=== PATIENT | female | born 1990 | race Caucasian/White ===

== ENCOUNTER 2023-05-31 12:54 | Emergency (ER) | payer OTHER, SELFPAY ==
--- NOTE | ~2023-05-31 | XR_ITS ---
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 RESULT: Lines, tubes, and devices: None. Lungs and pleura: Clear. Cardiothymic silhouette: Stable. Other: No acute upper abdominal finding. Mildly displaced right anterior fifth rib fracture IMPRESSION: Mildly displaced right anterior fifth rib fracture. Reviewed, dictated and finalized at location [facility]. 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
[2023-05-31 12:59] VITALS: BP 143/100; PULSE 104; RESP 18; TEMP 36.6; O2SAT 98
--- NOTE | 2023-05-31 13:36 | ED.GENADULT ---
HPI - General Adult General Chief complaint: Unspecified Stated complaint: right flank pain Time Seen by Provider: 05/31/23 13:03 Source: patient Mode of arrival: ambulatory Limitations: no limitations History of Present Illness HPI narrative: This is a 33 year old female that presents to the ER for mid back pain. Reports ongoing over the last week. Reports the pain like a soreness. Worse with touch and movement. Sharp pain with certain movements. She was evaluated with urinalysis and CT scans in [place] where she is from. Instructed her pain was likely musculoskeletal. Reports she has been taking Ibuprofen with some relief. She coughed today and the pain became way worse which prompted her to be seen again. No recent surgeries. She does report she has had a cold recently with persistent cough since. Denies fever, chest pain, shortness of breath, exogenous estrogen use, dysuria, or hematuria. Related Data Allergies Allergy/AdvReac Type Severity Reaction Status Date / Time No Known Allergies Allergy Verified 05/31/23 13:01 Review of Systems Review of Systems: CONSTITUTIONAL: Denies fever CARDIOVASCULAR: Denies chest pain or edema. RESPIRATORY: Reports cough. Denies dyspnea. SKIN: Denies rash MUSCULOSKELETAL: Reports back pain, joint pain, and myalgia. NEUROLOGIC: Denies numbness, or weakness. All systems reviewed & are unremarkable except as noted in HPI and below PMFSH Surgical History Surgical History (Updated 05/31/23 @ 13:37 by Sue Haji PA-C) History of tonsillectomy Social History Social History (Updated 05/31/23 @ 13:37 by Sue Haji PA-C) Smoking status: Never smoker Exam Narrative: GENERAL: Well-appearing, well-nourished, and in no acute distress. HEAD: Normocephalic, atraumatic. EYES: EOMI. CHEST: Clear to auscultation. No respiratory distress. No wheezes rales or rhonchi. Tender to palpation of right lateral chest wall HEART: Regular rate and rhythm. No murmur heard. Normal peripheral pulses. BACK: No midline spinal tenderness EXTREMITIES: Normal range of motion. No edema. Strength equal in bilateral upper extremities (5/5) SKIN: Warm, dry, no rash. NEURO: No focal deficits. Alert and oriented x3. PSYCH: Normal mood and affect Course Course Emergency Course: Patient updated on workup and agrees with plan of care Vital Signs Vital signs: Vital Signs Temperature 97.8 F 05/31/23 12:59 Pulse Rate 104 H 05/31/23 12:59 Respiratory Rate 18 05/31/23 12:59 Blood Pressure 143/100 H 05/31/23 12:59 Pulse Oximetry 98 05/31/23 12:59 Temperature 97.8 F 05/31/23 12:59 Pulse Rate 104 H 05/31/23 12:59 Respiratory Rate 18 05/31/23 12:59 Blood Pressure 143/100 H 05/31/23 12:59 Pulse Oximetry 98 05/31/23 12:59 Medical Decision Making MDM Narrative Medical decision making narrative: Patient presents to the ER for right sided back/rib pain after coughing today. Reports she has been coughing over the last couple of weeks after having a recent viral infection. Mildly tachycardic upon arrival, this normalized with pain management. She is afebrile and nontoxic-appearing. Lungs are clear on exam. Oxygen saturation is normal on room air. CBC without leukocytosis. Metabolic panel with normal-appearing kidney function. Bedside test is negative. Rib/chest x-ray shows a mildly displaced right anterior fifth rib fracture. Clear lungs. Patient updated on workup and agrees with plan of care. Instructed on further care of rib fracture. Given incentive spirometer. She is to follow-up with her primary provider. She was given warnings to return to the ER Vital Signs Vital Signs: Vital Signs Temperature 97.8 F 05/31/23 12:59 Pulse Rate 104 H 05/31/23 12:59 Respiratory Rate 18 05/31/23 12:59 Blood Pressure 143/100 H 05/31/23 12:59 Pulse Oximetry 98 05/31/23 12:59 Temperature 97.8 F 05/31/23 12:59 Pulse Rate 104 H
[2023-05-31 13:56] LABS: Basophils Percent Auto 0.4 % (0.2-1.2); Eosinophils Absolute Auto 0.2 K/mm3 (0-0.3); Eosinophils Percent Auto 1.5 % (0-4.4); Hematocrit 42.3 % (37.0-47.0); Hemoglobin 13.5 g/dL (12.0-15.0); Immature Granulocyte Absolute 0.04 K/mm3 (0.00-0.031); Immature Granulocyte Percent A 0.4 % (0-0.5); Lymphocytes Absolute Auto 2.69 K/mm3 (0.9-3.2); Lymphocytes Percent Auto 27.5 % (18.3-44.2); Mean Corpuscular HGB Conc 31.9 g/dl (32-36); Mean Corpuscular Hemoglobin 28.1 pg (26-34); Mean Corpuscular Volume 88.1 fl (80-100); Mean Platelet Volume 9.6 fl (7.4-10.4); Monocytes Absolute Auto 0.6 K/mm3 (0.1-0.6); Monocytes Percent Auto 5.9 % (2.6-8.5); Neutrophils Absolute Auto 6.3 K/mm3 (1.3-6.7); Neutrophils Percent Auto 64.3 % (45.5-73.1); Platelet Count Result 462 k/mm3 (150-375); Red Cell Distribution Width 14.2 % (11.5-14.5); White Blood Count 9.8 K/mm3 (4.5-10.0)
[2023-05-31 14:00] VITALS: O2SAT 100
[2023-05-31] MEDS: ACETAMINOPHEN 500 MG TABLET 1000 MG PO (14:03)
[2023-05-31] MEDS: KETOROLAC 30 MG/ML VIAL (*BKC) IM (14:03)
[2023-05-31 14:12] LABS: Anion Gap 10 mmol/L (8-16); Blood Urea Nitrogen 12 mg/dL (7-17); Carbon Dioxide 24 mmol/L (22-30); Chloride 105 mmol/L (98-107); Estimated CRCL calculation 88 ml/min; Estimated Glomerular Filt Rate > 60; Glucose 131 mg/dL (65-110); Potassium 4.1 mmol/L (3.4-5.0); Sodium 139 mmol/L (137-145)
[2023-05-31 15:01] VITALS: O2SAT 97
[2023-05-31 15:31] VITALS: BP 136/86; PULSE 78; RESP 18; O2SAT 100
[2023-05-31] MEDS: oxyCODONE HCL (*CRX) 5 MG TAB IR PO (15:44)
== END 2023-05-31 16:04 | disposition home or self-care (01) ==
PROVIDERS: Emergency Provider Physician Assistant
DX: S22.31XA Fracture of one rib, right side, initial encounter for closed fracture (principal); X50.9XXA Other and unspecified overexertion or strenuous movements or postures, initial encounter
CPT/HCPCS: 36415; 71046; 71100; 80048; 81025; 85025; 96372; 99283; A9270; J1885